=== PATIENT | male | born 1995 | race Caucasian/White ===

== ENCOUNTER 2019-02-14 17:58 | Emergency (ER) | payer OTHER ==
[~2019-02-14] VITALS: Ht 193 cm; Wt 106.8 kg
[2019-02-14] MEDS ORDERED: KETOROLAC 60 MG/2 ML VIAL (J1885) IM ONE (18:45)
--- NOTE | 2019-02-14 18:53 | REPVR ---
PROCEDURE INFORMATION: Exam: CT Head Without Contrast Exam date and time: 02/14/2019 6:26 PM Clinical history: 24 years old, male; Pain; Headache; Additional info: Head injury with loc TECHNIQUE: Imaging protocol: Computed tomography of the head without contrast. Radiation optimization: All CT scans at this facility use at least one of these dose optimization techniques: automated exposure control; mA and/or kV adjustment per patient size (includes targeted exams where dose is matched to clinical indication); or iterative reconstruction. COMPARISON: No relevant prior studies available. FINDINGS: Brain: Normal. No hemorrhage. Unremarkable white matter. No mass effect. Ventricles: Cavum septum pellucidum. Ventricles otherwise unremarkable. Bones/joints: Unremarkable. No acute fracture. Sinuses: Visualized sinuses are unremarkable. No fluid levels. Mastoid air cells: Visualized mastoid air cells are well aerated. Soft tissues: Unremarkable. IMPRESSION: No acute findings. Electronically signed by: Nigel Kothari On 02/14/2019 18:53:36 PM
[2019-02-14 19:42] VITALS: BP 153/65
== END 2019-02-14 20:40 | disposition home or self-care (01) ==
LOC: M ED 17:58
DX: S00.03XA Contusion of scalp, initial encounter (principal); W01.0XXA Fall on same level from slipping, tripping and stumbling without subsequent striking against object, initial encounter; Y92.012 Bathroom of single-family (private) house as the place of occurrence of the external cause
CPT/HCPCS: 70450; 96372; 99284; J1885

== ENCOUNTER 2019-02-22 09:34 | Emergency (ER) | payer OTHER ==
[~2019-02-22] VITALS: Ht 193 cm; Wt 113.5 kg
[2019-02-22] MEDS ORDERED: ACET650S3 PR (10:16)
[2019-02-22] MEDS ORDERED: NON-325T5 PO (10:16)
[2019-02-22] MEDS ORDERED: ZOFR4TAB16 PO (10:16)
--- NOTE | 2019-02-22 10:43 | REP ---
CT of the brain without IV contrast: Comparison is 02/14/2019. There is no subdural or epidural hematoma. There is no intraparenchymal or subarachnoid hemorrhage. There is no edema, mass effect or midline shift. The cortical stripe is unremarkable. The visualized paranasal sinuses and mastoid air cells are clear. Impression: Negative CT study of the brain. There is no interval change. Electronically Signed by Jose J Garcia MD 02/22/2019 10:35 A
[2019-02-22] MEDS ORDERED: ONDA4TAB6 PO (10:48)
[2019-02-22] MEDS ORDERED: IBUP-1114 PO (10:48)
[2019-02-22] MEDS ORDERED: KETOROLAC 60 MG/2 ML VIAL (J1885) IM ONE (11:00)
[2019-02-22 11:20] VITALS: BP 129/72
== END 2019-02-22 11:48 | disposition home or self-care (01) ==
LOC: M ED 09:34
DX: S06.0X0A Concussion without loss of consciousness, initial encounter (principal); X58.XXXA Exposure to other specified factors, initial encounter; Y92.89 Other specified places as the place of occurrence of the external cause
CPT/HCPCS: 70450; 96372; 99283; J1885

== ENCOUNTER 2019-09-25 09:16 | Emergency (ER) | payer OTHER ==
[~2019-09-25] VITALS: Ht 193 cm; Wt 114.7 kg
[~2019-09-25 09:16] MED LIST: ACET650S3 PR; IBUP-1114 PO; NON-325T5 PO; ONDA4TAB6 PO; ZOFR4TAB16 PO
[2019-09-25] MEDS ORDERED: predniSONE 20 MG TAB PO ONE (09:45)
[2019-09-25] MEDS ORDERED: CYCLOBENZAPRINE 10MG TABLET PO ONE (09:45)
[2019-09-25] MEDS ORDERED: KETOROLAC 30 MG/ML 1ML VIAL IM ONE (09:45)
[2019-09-25] MEDS ORDERED: LIDOCAINE 5% (LIDODERM) PATCH TD ONE (09:45)
[2019-09-25 11:02] VITALS: BP 125/60
[2019-09-25] MEDS ORDERED: LIDO5DIS41 TOP (11:02)
[2019-09-25] MEDS ORDERED: CYCL-707 PO (11:02)
[2019-09-25] MEDS ORDERED: PRED20TA PO (11:02)
[2019-09-25] MEDS ORDERED: IBUP80TA PO (11:03)
--- NOTE | 2019-09-25 11:27 | REP ---
CT LUMBAR SPINE WITHOUT CONTRAST: HISTORY: Low back pain with right lower extremity pain and paresthesias. CT FINDINGS: Lumbar vertebral body heights are preserved. No fracture or collapse is seen. Sacrum and SI joints are intact. There is no evidence of spondylolysis or spondylolisthesis. Alignment is normal. At L5-S1, there is a left paracentral broad-based focal disc protrusion with partially calcified margins which subtly compresses the thecal sac. There is no visible foraminal narrowing or overall spinal stenosis. No other focal disc protrusion is seen. There is mild left lateral disc bulging at L1-2. Study is otherwise unremarkable. No extra vertebral abnormality is seen. There are Schmorl's nodes visible at T11-12 and along the left posterior inferior endplate at T12. IMPRESSION: Left paracentral broad-based focal disc protrusion at L5-S1 with chronic appearing partially calcified margin. Mild left lateral disc bulging at L1-2. Otherwise negative. Electronically Signed by Tim Garner MD 09/25/2019 01:17 P
[2019-09-25] MEDS ORDERED: **NOTE PATIENT COMMENT** MISC XX SCH (21:00)
== END 2019-09-25 11:10 | disposition home or self-care (01) ==
LOC: M ED 09:16
DX: S76.311A Strain of muscle, fascia and tendon of the posterior muscle group at thigh level, right thigh, initial encounter (principal); Y93.02 Activity, running; Y92.9 Unspecified place or not applicable; M54.40 Lumbago with sciatica, unspecified side; G57.01 Lesion of sciatic nerve, right lower limb; M51.26 Other intervertebral disc displacement, lumbar region; M51.27 Other intervertebral disc displacement, lumbosacral region
CPT/HCPCS: 72131; 96372; 99283; J1885